=== PATIENT | female | born 1975 | race Hispanic/Latino ===

== ENCOUNTER 2017-09-17 18:45 | Emergency (ER) | payer OTHER ==
[2017-09-17 19:55] LABS: Absolute Lymphocytes (CBC) 1.6 K/uL (0.7-4.9); Absolute Monocytes 0.4 K/uL (0.1-1.3); Absolute Neutrophil 3.5 K/uL (1.8-8.0); Basophils % 1.1 % (0-1.3); Eosinophils % 3.5 % (0-4.4); Hematocrit 42.4 % (36.0-45.0); Lymphocytes % 28.1 % (15.3-44.8); MCH 29.8 pg (27.0-35.0); MCV 87.8 fL (80-100); MPV 9.1 fL (7.6-11.3); Monocytes % 6.5 % (3.3-12.3); RBC Red Blood Cell Count 4.83 M/uL (3.86-4.86)
[2017-09-17 20:01] LABS: Bicarbonate 25 mEq/L (21-31); Glucose Level 378 mg/dL (65-120); Potassium 3.7 mEq/L (3.6-5.0); Sodium Level 133 mEq/L (135-145)
[2017-09-17] MEDS ORDERED: NA CHLORIDE 0.9% 1,000 ML ONE (20:02)
[2017-09-17] MEDS ORDERED: CLINDAMYCIN 600MG/D5W 600 MG/50 ML BAG IV ONE (20:02)
[2017-09-17] MEDS ORDERED: DIPHENHYDRAMINE 50 MG/ML VIAL ONE (20:02)
[2017-09-17 20:04] LABS: ALT/SGPT 16 IU/L (10-60); AST/SGOT 18 IU/L (10-42); Albumin 3.6 g/dL (3.2-5.5); Alkaline Phosphatase 144 IU/L (42-121); BUN Blood Urea Nitrogen 13 mg/dL (6-20); Bilirubin Total 0.5 mg/dL (0.3-1.2); Protein, Total 6.7 g/dL (6.0-8.3)
--- NOTE | 2017-09-17 20:36 | EDPHYS ---
Physician Documentation [facility] Name: Bina Cifuentes Age: 42 yrs Sex: Female : 1975 Arrival Date: 09/17/2017 Time: 18:47 Bed 25 Private MD: ED Physician Jono Greer HPI: 09/17 20:04 This 42 yrs old Female presents to ER via Ambulatory with complaints of Facial ma2 Swelling. 20:04 The patient or guardian reports a bite, swelling. Context of injury: 1 day . Onset: The ma2 symptoms/episode began/occurred gradually, 1 day(s) ago. Associated signs and symptoms: Pertinent negatives: patient denies any alcohol consumption, headache, incontinence, nausea, neck pain, seizure, vomiting, generalized weakness, no change on voice or difficulty breathing or swallowing . Severity of symptoms: At their worst the symptoms were mild. 1 day of 1 single skin acne possible insect bite and mild cheek swelling, no swelling of mouth or airway . 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 - Social history:: Smoking status: Patient uses tobacco products, denies chronic smoking, but will smoke occasionally, Patient/guardian denies using alcohol, street drugs, The patient lives with family. - Family history:: not pertinent. ROS: 20:04 Constitutional: Negative for fever, chills, and weight loss, Cardiovascular: Negative ma2 for chest pain, palpitations, and edema, Respiratory: Negative for shortness of breath, cough, wheezing, and pleuritic chest pain, Abdomen/GI: Negative for abdominal pain, nausea, diarrhea, and constipation, Endocrine: Negative for neck swelling, polydipsia, polyuria, polyphagia, and marked weight changes. 20:04 ENT: Positive for mild face swellin g, Negative for drainage from ear(s), ear pain, hearing loss, pulling at ears, nasal discharge, rhinorrhea, sinus pain, sore throat, difficulty swallowing, difficulty handling secretions, hoarseness. 20:04 All other systems are negative. ma2 Exam: 20:04 Constitutional: This is a well developed, well nourished patient who is awake, alert, ma2 and in no acute distress. Eyes: Pupils equal round and reactive to light, extra-ocular motions intact. Lids and lashes normal. Conjunctiva and sclera are non-icteric and not injected. Cornea within normal limits. Periorbital areas with no swelling, redness, or edema. ENT: Nares patent. No nasal discharge, no septal abnormalities noted. Tympanic membranes are normal and external auditory canals are clear. Oropharynx with no redness, swelling, or masses, exudates, or evidence of obstruction, uvula midline. Mucous membranes moist. Chest/axilla: Normal chest wall appearance and motion. Nontender with no deformity. No lesions are appreciated. Cardiovascular: Regular rate and rhythm with a normal S1 and S2. No gallops, murmurs, or rubs. Normal PMI, no JVD. No pulse deficits. Respiratory: Lungs have equal breath sounds bilaterally, clear to auscultation and percussion. No rales, rhonchi or wheezes noted. No increased work of breathing, no retractions or nasal flaring. Neuro: Awake and alert, GCS 15, oriented to person, place, time, and situation. Cranial nerves II-XII grossly intact. Motor strength 5/5 in all extremities. Sensory grossly intact. Cerebellar exam normal. Normal gait. Psych: Awake, alert, with orientation to person, place and time. Behavior, mood, and affect are within normal limits. 20:04 Head/face: Noted is area of cellulitis 0.3x0.3 cm with 2 postule one on forehead and one on lower cheek, mild facial swelling, no swelling or oropharynx of tongue, voice not hoarse, no swelling of floor of mouth or neck . Vital Signs: 18:50 BP 141 / 106; Pulse 81; Resp 19; Temp 97.7(TE); Pulse Ox 100% on R/A; Weight 121.56 kg; la1 Height 5 ft. 5 in. (165.10 cm); 19:00 BP 134 / 87; Pulse 85; Resp 18; Pulse Ox 98% ; tl3 20:15 BP 132 / 83; Pulse 69; Resp 18; Pulse Ox 97% on R/A; tl3 21:24 BP 128 / 80; Pulse 84; Resp 16; Pulse Ox 98% on R/A; tl3 18:50 Body Mass Index 44.60 (121.56 kg, 165.10 cm) la1 MDM: 18:56 Patient medically screened. ma2 20:04 Differential diagnosis: facial cellulitis vs spider bite, vs allergic reaction, no ma2 airway compromise or Prabhu angina. Data reviewed: vital signs, nurses notes. Counseling: I had a detailed discussion with the patient and/or guardian regarding: the historical points, exam findings, and any diagnostic results supporting the discharge/admit diagnosis, the presence of at least one elevated blood pressure reading (>120/80) during this emergency department visit, the need for outpatient follow up. ED course: VS wnl,given IVF and clindamycine iv benadryl with imrovement of swelling, will send home with clindamycine benadryl, she will return to er for worsening of any of her symptoms . 20:34 Data reviewed: lab test result(s). Response to treatment: the patient's symptoms have ma2 markedly improved after treatment. ED course: she will f/u wiwth pcp for her elevated BS . 09/17 19:09 Order name: Blood Culture Adult (2) ma2 09/17 19:09 Order name: CBC with Diff; Complete Time: 20:33 ma2 09/17 19:09 Order name: CMP; Complete Time: 20:33 ma2 Administered Medications: 20:14 Drug: Clindamycin 600 mg Route: IVPB; Infused Over: 30 mins; Site: left antecubital; tl3 Delivery: Primary tubing; 21:22 Follow up: Response: No adverse reaction; IV Status: Completed infusion; IV Intake: tl3 100ml 20:15 Drug: NS 0.9% 1000 ml Route: IV; Rate: 1 bolus; Site: left antecubital; Delivery: tl3 Primary tubing; 21:15 Follow up: IV Status: Completed infusion; IV Intake: 1000ml tl3 20:15 Drug: Benadryl 25 mg Route: IVP; Infused Over: 3 mins; Site: left antecubital; tl3 21:23 Follow up: Response: No adverse reaction tl3 20:44 Drug: TORadol 30 mg Route: IVP; Infused Over: 3 mins; Site: left antecubital; tl3 21:22 Follow up: Response: No adverse reaction; Marked relief of symptoms tl3 Disposition: 05/12/18 20:35 Discharged to Home. Impression: Cellulitis of face. - Condition is Stable. - Discharge Instructions: Cellulitis, [id number]. - Prescriptions for Benadryl 25 mg Oral Capsule - take 1 capsule by ORAL route every 6 hours As needed; 30 tablet. Clindamycin HCl 300 mg Oral Capsule - take 1 capsule by ORAL route every 6 hours for 10 days; 40 capsule. Tylenol- Codeine #3 300-30 mg Oral Tablet - take 2 tablet by ORAL route every 6 hours As needed; 30 tablet. - Medication Reconciliation Form, Thank You Letter, Antibiotic Education, Prescription Opioid Use form. - Follow up: Private Physician; When: Tomorrow; Reason: Continuance of care. - Problem is new. - Symptoms have improved. - Notes: you may have diabetes, elevated blood sugar, follow up with your doctor for that. Signatures: Dispatcher [employer] EDMS Jakob Green RN RN la1 Jono Greer MD MD ma2 Myrna Walter RN RN tl3 Corrections: (The following items were deleted from the chart) 21:25 20:35 09/17/2017 20:35 Discharged to Home. Impression: Cellulitis of face. Condition is tl3 Stable. Forms are Medication Reconciliation Form, Thank You Letter, Antibiotic Education, Prescription Opioid Use. Follow up: Private Physician; When: Tomorrow; Reason: Continuance of care. Problem is new. Symptoms have improved. ma2
--- NOTE | 2017-09-17 20:36 | ER ---
Nurse's Notes [facility] Name: Bina Cifuentes Age: 42 yrs Sex: Female : 1975 Arrival Date: 09/17/2017 Time: 18:47 Bed 25 Private MD: Diagnosis: Cellulitis of face Presentation: 09/17 18:49 Presenting complaint: Patient states: I thought I had a pimple on my face but over the la1 course of 3 hours it started swelling in my face, airway patent, respirations even and unlabored. Transition of care: patient was not received from another setting of care. Onset of symptoms was September 17, 2017. Initial Sepsis Screen: Does the patient meet any 2 criteria? No. Patient's initial sepsis screen is negative. Does the patient have a suspected source of infection? No. Patient's initial sepsis screen is negative. Care prior to arrival: None. 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 - Social history:: Smoking status: Patient uses tobacco products, denies chronic smoking, but will smoke occasionally, Patient/guardian denies using alcohol, street drugs, The patient lives with family. - Family history:: not pertinent. Screenin:00 Abuse screen: Denies threats or abuse. Nutritional screening: No deficits noted. tl3 Tuberculosis screening: No symptoms or risk factors identified. Fall Risk None identified. Assessment: 19:00 General: Appears uncomfortable, well groomed, well developed, well nourished, Behavior tl3 is calm, cooperative, appropriate for age. Pain: Complains of pain in face. Neuro: Level of Consciousness is awake, alert, obeys commands, Oriented to person, place, time, situation, Appropriate for age. Cardiovascular: Heart tones S1 S2 present Patient's skin is warm and dry. Respiratory: Airway is patent Trachea midline Respiratory effort is even, unlabored, Respiratory pattern is regular, symmetrical, Breath sounds are clear bilaterally. GI: No signs and/or symptoms were reported involving the gastrointestinal system. : No signs and/or symptoms were reported regarding the genitourinary system. EENT: No signs and/or symptoms were reported regarding the EENT system. Derm: Skin temperature is warm swelling to left side of face Abscess located on forehead and chin. Musculoskeletal: No signs and/or symptoms reported regarding the musculoskeletal system. 19:00 Reassessment: pt reports that swelling started this am and has progressively gotten tl3 worse. 20:15 Reassessment: Patient appears in no apparent distress at this time. No changes from tl3 previously documented assessment. Patient and/or family updated on plan of care and expected duration. Pain level reassessed. Patient is alert, oriented x 3, equal unlabored respirations, skin warm/dry/pink. pt resting in bed, mom at bedside, no needs or complaints at this time. 20:45 Reassessment: awaiting finish of bolus to discharge. tl3 21:24 Reassessment: Patient appears in no apparent distress at this time. No changes from tl3 previously documented assessment. Patient and/or family updated on plan of care and expected duration. Pain level reassessed. Patient is alert, oriented x 3, equal unlabored respirations, skin warm/dry/pink. Vital Signs: 18:50 BP 141 / 106; Pulse 81; Resp 19; Temp 97.7(TE); Pulse Ox 100% on R/A; Weight 121.56 kg; la1 Height 5 ft. 5 in. (165.10 cm); 19:00 BP 134 / 87; Pulse 85; Resp 18; Pulse Ox 98% ; tl3 20:15 BP 132 / 83; Pulse 69; Resp 18; Pulse Ox 97% on R/A; tl3 21:24 BP 128 / 80; Pulse 84; Resp 16; Pulse Ox 98% on R/A; tl3 18:50 Body Mass Index 44.60 (121.56 kg, 165.10 cm) la1 ED Course: 18:47 Patient arrived in ED. mr 18:50 Triage completed. la1 18:50 Arm band placed on left wrist. la1 18:56 Jono Greer MD is Attending Physician. ma2 19:00 Patient has correct armband on for positive identification. Bed in low position. Call tl3 light in reach. Side rails up X 1. Adult w/ patient. Pulse ox on. NIBP on. 19:00 No provider procedures requiring assistance completed. Inserted saline lock: 20 gauge tl3 in left antecubital area, using aseptic technique. Blood collected. Missed attempt(s): 20 gauge in right in left forearm. upper arm. 19:47 Myrna Walter, RN is Primary Nurse. tl3 21:24 IV discontinued, intact, bleeding controlled, No redness/swelling at site. Pressure tl3 dressing applied. Administered Medications: 20:14 Drug: Clindamycin 600 mg Route: IVPB; Infused Over: 30 mins; Site: left antecubital; tl3 Delivery: Primary tubing; 21:22 Follow up: Response: No adverse reaction; IV Status: Completed infusion; IV Intake: tl3 100ml 20:15 Drug: NS 0.9% 1000 ml Route: IV; Rate: 1 bolus; Site: left antecubital; Delivery: tl3 Primary tubing; 21:15 Follow up: IV Status: Completed infusion; IV Intake: 1000ml tl3 20:15 Drug: Benadryl 25 mg Route: IVP; Infused Over: 3 mins; Site: left antecubital; tl3 21:23 Follow up: Response: No adverse reaction tl3 20:44 Drug: TORadol 30 mg Route: IVP; Infused Over: 3 mins; Site: left antecubital; tl3 21:22 Follow up: Response: No adverse reaction; Marked relief of symptoms tl3 Intake: 21:15 IV: 1000ml; Total: 1000ml. tl3 21:22 IV: 100ml; Total: 1100ml. tl3 Outcome: 20:35 Discharge ordered by . ma2 21:24 Discharged to home via wheelchair. tl3 21:24 Condition: stable 21:24 Discharge instructions given to patient, family, Instructed on discharge instructions, follow up and referral plans. medication usage, Demonstrated understanding of instructions, follow-up care, medications, Prescriptions given X 3. 21:25 Patient left the ED. tl3 Signatures: Rayne Angel Lee, RN RN madison1 Jono Greer MD MD ma2 Lowrey, Tammy, RN RN tl3
[2017-09-17] MEDS ORDERED: KETOROLAC 30 MG/ML INJ ONE (20:42)
[2017-09-17 21:30] VITALS: TEMP 97.7
[2017-09-17 21:34] VITALS: BP 128/80; O2SAT 98
== END 2017-09-17 21:25 | disposition home or self-care (01) ==
LOC: ER 18:45
DX: L03.211 Cellulitis of face (principal); Z72.0 Tobacco use
CPT/HCPCS: 36415; 80053; 85025; 87040; 96361; 96365; 96375; 99284; J7030

== ENCOUNTER 2018-04-28 10:26 | Day surgery (SDC) | payer SELFPAY ==
[2018-04-28] MEDS ORDERED: Ringers Lactate 0 ML IV ONE (10:49)
[2018-04-28] MEDS ORDERED: CEFAZOLIN 2GM (PREMIX IV) 2 GM/50 ML BAG ONE (10:50)
[2018-04-28] MEDS ORDERED: CEFAZOLIN 1GM (PREMIX IV) 1 GM/50 ML BAG ONE (10:51)
[2018-04-28] MEDS ORDERED: BUPIVACA 0.25%/EPI 0.0005% MDV 50 ML VIAL ONE (10:52)
[2018-04-28] MEDS ORDERED: NA CHLORIDE 0.9% 1,000 ML ONE ×2 (10:53→12:38)
[2018-04-28] MEDS ORDERED: PROPOFOL 200 MG/20 ML VIAL IV ONE (11:09)
[2018-04-28] MEDS ORDERED: LIDOCAINE 2% MPF 5 ML VIAL ONE (11:10)
[2018-04-28] MEDS ORDERED: ONDANSETRON 4 MG/2 ML VIAL ONE (11:10)
[2018-04-28] MEDS ORDERED: MIDAZOLAM HCL 2 MG/2 ML INJ ONE ×2 (11:10→12:35)
[2018-04-28] MEDS ORDERED: FENTANYL CITR 100 MCG/2 ML ONE (11:10)
--- NOTE | 2018-04-28 11:35 | P.OP ---
Preoperative diagnosis: LEFT Abdominal Subcutaneous Abscess Postoperative diagnosis: LEFT Abdominal Subcutaneous Abscess Primary procedure: Excision / Debridement of LEFT Abdominal Subcutaneous Abscess Anesthesia: GETA Estimated blood loss: <5cc Specimen: Cultures sent Findings: Carbuncle with abscess ~5cmx 0lyt6wk down into subQ fat Complications: None Transferred to: Recovery Room Condition: Good
[2018-04-28] MEDS ORDERED: PROMETHAZINE 25 MG/ML VIAL ONE (12:13)
[2018-04-28] MEDS: MORPHINE 4 MG/ML SYR ONE ×2 (12:15→12:25)
[2018-04-28] MEDS ORDERED: HYDROCODONE/APAP 5/325 MG TAB ONE (14:20)
[2018-04-28 14:58] VITALS: BP 124/66; TEMP 98; O2SAT 95
--- NOTE | 2018-04-28 22:58 | OP ---
Date of Procedure: 04/28/2018 Surgeon: Homer Andrade MD, Preoperative Diagnosis: Left abdominal subcutaneous abscess. Postoperative Diagnosis: Left abdominal subcutaneous abscess. Procedure Performed: An excision/debridement of left abdominal subcutaneous abscess. Anesthesia: General endotracheal. Estimated Blood Loss: Less 5 cc. Specimen: Cultures sent. Findings: Carbuncle with abscess 5 cm x 4 cm x 4 cm down into the subcutaneous fascia. Complications: None. Transferred to recovery room in good condition. Procedure In Detail: Informed consent was obtained. The patient was brought to the operating room, appropriately prepped and draped in the usual sterile fashion. After adequate anesthesia was achieve d, a curvilinear incision was made around the area of carbuncle on the left abdominal wall. The smiley pse of skin was taken at approximately 5 cm at the surface by 4 cm and was opened up, immediately enc ountered with an abscess with fat necrosis. This was cultured for both aerobic and anaerobic speciat ion and small specimen was sent for culture as well. The area was completely unroofed and marsupiali zed at this time. All necrotic tissue was then curetted out until completely clear and trimmed off w ith tenotomy scissors down to good bleeding subcutaneous fat. The abscess cavity was complex and ult imately went into the subcutaneous fat. After this was completely removed, the area was copiously ir rigated and hemostasis was achieved with electrocautery. The area was copiously irrigated one last t gumaro and then dried. No additional hemostatic maneuvers were required. The wound was then packed wit h Betadine-soaked gauze and Kerlix and a sterile dressing was placed over top. The patient tolerated the procedure well without evidence of complication and transferred back in good condition. All cou nts were correct at the end of the case. BRADEN/DUNIA Voice ID: [id number] Report ID: [id number]
== END 2018-04-28 15:40 | disposition home or self-care (01) ==
LOC: OR 10:26
PROVIDERS: ATTEND Surgery
PROC: 0JB80ZZ Excision of Abdomen Subcutaneous Tissue and Fascia, Open Approach (ICD-10-PCS; principal; 2018-04-28 11:30)
DX: L02.211 Cutaneous abscess of abdominal wall (principal); E66.9 Obesity, unspecified; F17.200 Nicotine dependence, unspecified, uncomplicated
CPT/HCPCS: 82962; 87070; 87075; 87077; 87186; 87205; 88304; 88305; J0690; J2250; J2405; J2550; J2704; J3010; J7030

== ENCOUNTER 2018-12-07 13:15 | Emergency (ER) | payer SELFPAY ==
[2018-12-07] MEDS ORDERED: BUPIVACAINE 0.5% PF 10 ML VIAL ONE (15:39)
[2018-12-07] MEDS ORDERED: SMZ./TMP. 800/160 MG TABLET ONE (15:40)
[2018-12-07] MEDS ORDERED: LIDOCAINE 1% MPF 5 ML VIAL ONE (15:40)
--- NOTE | 2018-12-07 16:32 | ER ---
Nurse's Notes [facility] Name: Bina Cifuentes Age: 43 yrs Sex: Female : 1975 Arrival Date: 12/07/2018 Time: 13:16 Bed 30 Private MD: Diagnosis: Cellulitis of right upper limb-middle finger Presentation: 12/07 13:34 Presenting complaint: Patient states: pain and redness to right middle finger that aa5 began yesterday. Pt denies known injury. Sore noted to right middle finger, pt states "it's been there for about a week". Transition of care: patient was not received from another setting of care. Onset of symptoms was December 06, 2018. Risk Assessment: Do you want to hurt yourself or someone else? Patient reports no desire to harm self or others. Initial Sepsis Screen: Does the patient meet any 2 criteria? No. Patient's initial sepsis screen is negative. Does the patient have a suspected source of infection? No. Patient's initial sepsis screen is negative. Care prior to arrival: None. 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 - Social history:: Smoking status: Patient uses tobacco products, denies chronic smoking, but will smoke occasionally. - Ebola Screening: : No symptoms or risks identified at this time. Screenin:56 Abuse screen: Denies threats or abuse. Denies injuries from another. Nutritional mg2 screening: No deficits noted. Tuberculosis screening: No symptoms or risk factors identified. Fall Risk None identified. Assessment: 15:53 General: Appears in no apparent distress. comfortable, Behavior is calm, cooperative. mg2 Pain: Complains of pain in right middle finger Pain does not radiate. Pain currently is 8 out of 10 on a pain scale. Quality of pain is described as aching, Aggravated by touch. Neuro: Level of Consciousness is awake, alert, obeys commands, Oriented to person, place, time, situation. Cardiovascular: Capillary refill < 3 seconds Patient's skin is warm and dry. Respiratory: Airway is patent Respiratory effort is even, unlabored, Respiratory pattern is regular, symmetrical. GI: No signs and/or symptoms were reported involving the gastrointestinal system. : No signs and/or symptoms were reported regarding the genitourinary system. EENT: No signs and/or symptoms were reported regarding the EENT system. Derm: Abscess located on right middle finger. Musculoskeletal: Circulation, motion, and sensation intact. Capillary refill < 3 seconds, Swelling present in right middle finger. Vital Signs: 13:36 BP 139 / 88; Pulse 99; Resp 18 S; Temp 98.0(TE); Pulse Ox 96% on R/A; Weight 111.58 kg aa5 (M); Pain 8/10; 16:23 BP 143 / 87; Pulse 72; Resp 18; Pulse Ox 96% on R/A; mg2 ED Course: 13:16 Patient arrived in ED. as 13:34 Arm band placed on. aa5 13:35 Triage completed. aa5 15:11 Rad[facility] Kilgore [facility]C [facility]. kb 15:11 Deacon Gomez MD is Attending Physician. kb 15:44 Adrian Barnett RN is Primary Nurse. mg2 15:56 Patient did not have IV access during this emergency room visit. mg2 16:13 Patient has correct armband on for positive identification. Pulse ox on. NIBP on. Door mg2 closed. Warm blanket given. 16:58 No provider procedures requiring assistance completed. mg2 Administered Medications: 15:44 Drug: Bactrim (160 mg-800 mg (DS) 1 tablet Route: PO; mg2 16:22 Follow up: Response: No adverse reaction mg2 16:15 Drug: Lidocaine (1 %) 1 vials {Note: by the provider.} Volume: 5 ml; Route: mg2 Infiltration; 16:15 Drug: Marcaine (0.5 %) 1 vials {Note: by the provider.} Volume: 10 ml; Route: mg2 Infiltration; Outcome: 16:32 Discharge ordered by . kb 16:58 Discharged to home ambulatory, with family. mg2 16:58 Condition: stable 16:58 Discharge instructions given to patient, family, Instructed on discharge instructions, follow up and referral plans. medication usage, Demonstrated understanding of instructions, follow-up care, medications. 16:59 Patient left the ED. mg2 Signatures: Radha Kilgore, ZAC ALICEA-Manju Chatterjee Audri, RN RN aa5 Adrian Barnett RN RN mg2 Corrections: (The following items were deleted from the chart) 13:36 13:36 Social history: Smoking status: Patient/guardian denies using tobacco, vonnie aaAbdi 16:32 16:23 Pulse 72bpm; Resp 18bpm; Pulse Ox 96% RA; mg2 mg2
--- NOTE | 2018-12-07 16:33 | EDPHYS ---
Physician Documentation [facility] Name: Bina Cifuentes Age: 43 yrs Sex: Female : 1975 Arrival Date: 12/07/2018 Time: 13:16 Bed 30 Private MD: ED Physician Decaon Gomez HPI: 12/08 02:09 This 43 yrs old Female presents to ER via Ambulatory with complaints of Finger kb Injury. 02:09 the patient presents with a swollen area of the right middle finger. Description: kb erythematous, swollen, warm. Onset: The symptoms/episode began/occurred yesterday. Possible cause(s): unknown. Associated signs and symptoms: Pertinent positives: erythema, swelling, Pertinent negatives: discharge, drainage, foreign body sensation, fever, headache, nausea, shortness of breath, vomiting. Modifying factors: the symptoms are alleviated by nothing, the symptoms are aggravated by nothing. Severity of symptoms: At their worst the symptoms were moderate, in the emergency department the symptoms are unchanged. The patient has not experienced similar symptoms in the past. The patient has not recently seen a physician. Pt reports right middle finger swelling, redness and pain that started yesterday. 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 - Social history:: Smoking status: Patient uses tobacco products, denies chronic smoking, but will smoke occasionally. - Ebola Screening: : No symptoms or risks identified at this time. ROS: 12/08 01:32 Constitutional: Negative for fever, chills, and weight loss, Neck: Negative for injury, kb pain, and swelling, Cardiovascular: Negative for chest pain, palpitations, and edema, Respiratory: Negative for shortness of breath, cough, wheezing, and pleuritic chest pain, Abdomen/GI: Negative for abdominal pain, nausea, vomiting, diarrhea, and constipation, Back: Negative for injury and pain, : Negative for injury, bleeding, discharge, and swelling, Neuro: Negative for headache, weakness, numbness, tingling, and seizure. MS/extremity: Positive for erythema, pain, swelling, tenderness, of the right middle finger. Exam: 01:33 Constitutional: This is a well developed, well nourished patient who is awake, alert, kb and in no acute distress. Head/Face: Normocephalic, atraumatic. ENT: Nares patent. No nasal discharge, no septal abnormalities noted. Tympanic membranes are normal and external auditory canals are clear. Oropharynx with no redness, swelling, or masses, exudates, or evidence of obstruction, uvula midline. Mucous membranes moist. Neck: Trachea midline, no thyromegaly or masses palpated, and no cervical lymphadenopathy. Supple, full range of motion without nuchal rigidity, or vertebral point tenderness. No Meningismus. Chest/axilla: Normal chest wall appearance and motion. Nontender with no deformity. No lesions are appreciated. Cardiovascular: Regular rate and rhythm with a normal S1 and S2. No gallops, murmurs, or rubs. Normal PMI, no JVD. No pulse deficits. Respiratory: Lungs have equal breath sounds bilaterally, clear to auscultation and percussion. No rales, rhonchi or wheezes noted. No increased work of breathing, no retractions or nasal flaring. Abdomen/GI: Soft, non-tender, with normal bowel sounds. No distension or tympany. No guarding or rebound. No evidence of tenderness throughout. MS/ Extremity: Pulses equal, no cyanosis. Neurovascular intact. Full, normal range of motion. Neuro: Awake and alert, GCS 15, oriented to person, place, time, and situation. Cranial nerves II-XII grossly intact. Motor strength 5/5 in all extremities. Sensory grossly intact. Cerebellar exam normal. Normal gait. 01:33 Skin: cellulitis, that is moderate, on the right middle finger. Vital Signs: 12/07 13:36 BP 139 / 88; Pulse 99; Resp 18 S; Temp 98.0(TE); Pulse Ox 96% on R/A; Weight 111.58 kg aa5 (M); Pain 8/10; 16:23 BP 143 / 87; Pulse 72; Resp 18; Pulse Ox 96% on R/A; mg2 Procedures: 12/08 01:34 Nerve block: (digital) of right middle finger Medication: Lidocaine 1% without kb epinephrine Marcaine 0.5%, Amount: 4 mls were injected, Effect: the patient has resolution of the pain, Set up for procedure. Performed by Radha FRANK Patient tolerated well. MDM: 12/07 15:12 Patient medically screened. kb 12/08 01:33 Data reviewed: vital signs, nurses notes. Data interpreted: Pulse oximetry: on room air kb is 96 %. Interpretation: normal. Counseling: I had a detailed discussion with the patient and/or guardian regarding: the historical points, exam findings, and any diagnostic results supporting the discharge/admit diagnosis, the need for outpatient follow up, a family practitioner, to return to the emergency department if symptoms worsen or persist or if there are any questions or concerns that arise at home. Administered Medications: 12/07 15:44 Drug: Bactrim (160 mg-800 mg (DS) 1 tablet Route: PO; mg2 16:22 Follow up: Response: No adverse reaction mg2 16:15 Drug: Lidocaine (1 %) 1 vials {Note: by the provider.} Volume: 5 ml; Route: mg2 Infiltration; 16:15 Drug: Marcaine (0.5 %) 1 vials {Note: by the provider.} Volume: 10 ml; Route: mg2 Infiltration; Disposition: 12/07/18 16:32 Discharged to Home. Impression: Cellulitis of right upper limb - middle finger. - Condition is Stable. - Discharge Instructions: Cellulitis, Adult, [id number], Felon. - Prescriptions for Bactrim DS 800- 160 mg Oral Tablet - take 1 tablet by ORAL route every 12 hours for 10 days; 20 tablet. Diclofenac Sodium 75 mg Oral Tablet, Delayed Release (E.C.) - take 1 tablet by ORAL route 2 times per day As needed; 30 tablet. - Work release form, Medication Reconciliation Form, Thank You Letter, Antibiotic Education, Prescription Opioid Use form. - Follow up: Private Physician; When: 2 - 3 days; Reason: Recheck today's complaints, Continuance of care, Re-evaluation by your physician. Follow up: Emergency Department; When: As needed; Reason: Worsening of condition. Addendum: 12/11/2018 08:40 Co-signature as Attending Physician, Deacon Gomez MD I agree with the assessment and k dr plan of care. Signatures: Radha Kilgore, VENEREAL DISEASE CONTROL HEAD-C VENEREAL DISEASE CONTROL HEAD-Ckb Deacon Gmoez MD MD kdr Adilene Gaines RN RN aa5 Adrian Barnett, RN RN mg2 Corrections: (The following items were deleted from the chart) 12/07 13:36 13:36 Social history: Smoking status: Patient/guardian denies using tobacco, aa5 aa5 16:59 16:32 12/07/2018 16:32 Discharged to Home. Impression: Cellulitis of right upper limb - mg2 middle finger. Condition is Stable. Forms are Medication Reconciliation Form, Thank You Letter, Antibiotic Education, Prescription Opioid Use. Follow up: Private Physician; When: 2 - 3 days; Reason: Recheck today's complaints, Continuance of care, Re-evaluation by your physician. Follow up: Emergency Department; When: As needed; Reason: Worsening of condition. kb 12/08 01:33 01:32 MS/extremity: Positive for erythema, pain, swelling, tenderness, kb kb
[2018-12-07 17:25] VITALS: TEMP 98; O2SAT 96
[2018-12-07 17:26] VITALS: BP 143/87
== END 2018-12-07 16:59 | disposition home or self-care (01) ==
LOC: ER 13:15
DX: L03.011 Cellulitis of right finger (principal); Z72.0 Tobacco use
CPT/HCPCS: 64450; 99283

== ENCOUNTER 2019-07-30 22:00 | Emergency (ER) | payer SELFPAY ==
[2019-07-30] MEDS ORDERED: LIDOCAINE 1% MPF 5 ML VIAL ONE (22:42)
[2019-07-30] MEDS ORDERED: HYDROCODONE/APAP 10/325 TAB ONE (22:42)
[2019-07-30] MEDS ORDERED: TETANUS & DIPHTHERIA TOX,ADULT 0.5 ML VIAL ONE (22:43)
--- NOTE | 2019-07-31 00:31 | ER ---
Nurse's Notes [facility] Name: Bina Cifuentes Age: 44 yrs Sex: Female : 1975 Arrival Date: 07/30/2019 Time: 22:04 Bed 2 Private MD: Diagnosis: Cellulitis of left finger Presentation: 07/29 22:22 Chief complaint: Patient states: pain to L second digit for the past 36 hours. started ch yesterday morning, pain is getting worse and worse, swelling is getting worse and worse. Coronavirus screen: Patient denies fever greater than 100.4F, cough, shortness of breath, or difficulty breathing. Proceed with normal triage process. Ebola Screen: Patient negative for fever greater than or equal to 101.5 degrees Fahrenheit, and additional compatible Ebola Virus Disease symptoms Patient denies exposure to infectious person. Patient denies travel to an Ebola-affected area in the 21 days before illness onset. No symptoms or risks identified at this time. Initial Sepsis Screen: Does the patient meet any 2 criteria? No. Patient's initial sepsis screen is negative. Does the patient have a suspected source of infection? No. Patient's initial sepsis screen is negative. Risk Assessment: Do you want to hurt yourself or someone else? Patient reports no desire to harm self or others. 22:22 Method Of Arrival: Ambulatory 22:22 Acuity: DUARTE 3 07/30 02:38 Onset of symptoms was July 29, 2019 at 08:00. Triage Assessment: 07/29 22:25 General: Appears in no apparent distress. comfortable, Behavior is calm, cooperative, appropriate for age. Pain: Complains of pain in left index finger, dorsal aspect of distal phalanx of left index finger, palmar aspect of distal phalanx of left index finger and left index fingernail Pain currently is 8 out of 10 on a pain scale. Neuro: No deficits noted. Musculoskeletal: Capillary refill < 3 seconds, in bilateral fingers. Range of motion: limited in DIP of left index finger and PIP of left index finger Swelling present in left index finger, dorsal aspect of distal phalanx of left index finger and palmar aspect of distal phalanx of left index finger. Injury Description: none- pt does bite her nails. 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 - Social history:: Smoking status: Patient reports the use of cigarette tobacco products, denies chronic smoking, but will smoke occasionally, Patient uses alcohol, occasionally. Patient/guardian denies using street drugs. Screenin:29 Abuse screen: Denies threats or abuse. Denies injuries from another. Nutritional ch screening: No deficits noted. Tuberculosis screening: No symptoms or risk factors identified. Fall Risk None identified. Assessment: 22:29 General: Appears in no apparent distress. comfortable, Behavior is calm, cooperative, ch appropriate for age. Pain: Complains of pain in palmar aspect of distal phalanx of left index finger and dorsal aspect of distal phalanx of left index finger Pain currently is 8 out of 10 on a pain scale. Neuro: No deficits noted. Respiratory: Airway is patent Respiratory effort is even, unlabored. Derm: Skin is pink, pt has swelling and some bruising to her finger tip, skin is reddened and slightly mildly purplish on tip. Musculoskeletal: No signs and/or symptoms reported regarding the musculoskeletal system. 23:30 Reassessment: Patient appears in no apparent distress at this time. Patient and/or ch family updated on plan of care and expected duration. Pain level reassessed. Patient is alert, oriented x 3, equal unlabored respirations, skin warm/dry/pink. 07/30 00:20 Reassessment: Patient appears in no apparent distress at this time. Patient and/or ch family updated on plan of care and expected duration. Pain level reassessed. Patient is alert, oriented x 3, equal unlabored respirations, skin warm/dry/pink. Patient states feeling better. Patient states symptoms have improved. 00:45 Reassessment: AWAITING CHRISTOPHER TO ADD MUPROCIN SCRIPT. Vital Signs: 07/29 22:22 BP 155 / 102; Pulse 88; Resp 14; Temp 99(O); Pulse Ox 99% on R/A; Weight 104.33 kg; ch Height 5 ft. 5 in. (165.10 cm); Pain 8/10; 07/30 00:20 BP 130 / 88; Pulse 71; Resp 14; Temp 98.2; Pulse Ox 99% on R/A; Pain 3/10; ch 07/29 22:22 Body Mass Index 38.27 (104.33 kg, 165.10 cm) ED Course: 07/29 22:04 Patient arrived in ED. cf2 22:16 Christopher Walters, SUSTAINABLE PRODUCTS MARKETING MANAGER is PHCP. pm1 22:17 Brooks Hussein MD is Attending Physician. pm1 22:22 Veronica Boykin, BING is Primary Nurse. 22:24 Triage completed. 22:25 Arm band placed on left wrist. Patient placed in an exam room, on a stretcher, on pulse oximetry. 22:29 Patient has correct armband on for positive identification. Bed in low position. Call light in reach. Side rails up X 1. Pulse ox on. NIBP on. Warm blanket given. 07/30 00:00 Assist provider with I \\T\\ D: of an abscess on left fingertip Set up I\\T\\D tray. Performed ch by Christopher Walters SUSTAINABLE PRODUCTS MARKETING MANAGER Dressing with Neosporin and tape Patient tolerated pt tolerated fair. pt is very sensitive to all stimuli. pt cries out when repositioning herself on the bed. pt reports extreem pain from the blood pressure cuff on her R arm, from the tdap shot in her L deltoid, from any rom check on hand and elbow. pt reports pain in her back from our beds, requires multiple changes to position of bed to achieve comfort. Patient did not have IV access during this emergency room visit. Administered Medications: 07/29 22:45 Drug: Tetanus-Diphtheria Toxoid Adult 0.5 ml {Digital Pre Press Operator: [employer]. Exp: 05/24/2021. Lot #: [id number]. } Route: IM; Site: left deltoid; 23:15 Follow up: Response: No adverse reaction 22:45 Drug: [place] 10 mg-325 mg 1 tabs Route: PO; 23:16 Follow up: Response: No adverse reaction 07/30 00:30 Drug: Lidocaine (1 %) 5 ml Volume: 5 ml; Route: Infiltration; 01:06 Drug: Augmentin 875 mg Route: PO; 01:06 Follow up: Response: No adverse reaction Outcome: 00:30 Discharge ordered by . pm1 01:04 Discharged to home ambulatory, with family. 01:04 Condition: improved 01:04 Discharge instructions given to patient, Instructed on discharge instructions, follow up and referral plans. medication usage, Demonstrated understanding of instructions, follow-up care, medications, wound care, Prescriptions given X 3. 01:07 Patient left the ED. Signatures: Veronica Boykin, RN RN Christopher Couch, SEMAJ SUSTAINABLE PRODUCTS MARKETING MANAGER pm1 Tito Warren 2
--- NOTE | 2019-07-31 00:33 | EDPHYS ---
Physician Documentation [facility] Name: Bina Cifuentes Age: 44 yrs Sex: Female : 1975 Arrival Date: 07/30/2019 Time: 22:04 Bed 2 Private MD: ED Physician Brooks Hussein HPI: 07/29 22:49 This 44 yrs old Female presents to ER via Ambulatory with complaints of Finger pm1 Injury, Arm Pain. 22:49 The patient or guardian reports pain, swelling. The complaints affect the palmar aspect pm1 of distal phalanx of left index finger. 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 Onset: The symptoms/episode began/occurred yesterday. Modifying factors: The symptoms are alleviated by nothing, the symptoms are aggravated by touching. Associated signs and symptoms: Pertinent negatives: cyanosis distally, decreased sensation distally, numbness distally, tingling distally. Severity of symptoms: in the emergency department the symptoms are actually worse. The patient has not experienced similar symptoms in the past. 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 - Social history:: Smoking status: Patient reports the use of cigarette tobacco products, denies chronic smoking, but will smoke occasionally, Patient uses alcohol, occasionally. Patient/guardian denies using street drugs. ROS: 22:49 Constitutional: Negative for fever, chills, and weight loss, Cardiovascular: Negative pm1 for chest pain, palpitations, and edema, Respiratory: Negative for shortness of breath, cough, wheezing, and pleuritic chest pain, Back: Negative for injury and pain. 22:49 Skin: Negative for injury, rash, and discoloration. 22:49 MS/extremity: Positive for pain, swelling, of the palmar aspect of distal phalanx of left index finger. 22:49 All other systems are negative. Exam: 22:49 Constitutional: This is a well developed, well nourished patient who is awake, alert, pm1 and in no acute distress. Head/Face: Normocephalic, atraumatic. Chest/axilla: Normal chest wall appearance and motion. Nontender with no deformity. No lesions are appreciated. Cardiovascular: Regular rate and rhythm with a normal S1 and S2. No gallops, murmurs, or rubs. Normal PMI, no JVD. No pulse deficits. Respiratory: Lungs have equal breath sounds bilaterally, clear to auscultation and percussion. No rales, rhonchi or wheezes noted. No increased work of breathing, no retractions or nasal flaring. Abdomen/GI: Soft, non-tender, with normal bowel sounds. No distension or tympany. No guarding or rebound. No evidence of tenderness throughout. Back: No spinal tenderness. No costovertebral tenderness. Full range of motion. Skin: Warm, dry with normal turgor. Normal color with no rashes, no lesions, and no evidence of cellulitis. 22:49 Musculoskeletal/extremity: Extremities: grossly normal except: noted in the palmar aspect of distal phalanx of left index finger: swelling, tenderness. Vital Signs: 22:22 BP 155 / 102; Pulse 88; Resp 14; Temp 99(O); Pulse Ox 99% on R/A; Weight 104.33 kg; Height 5 ft. 5 in. (165.10 cm); Pain 8/10; 07/30 00:20 BP 130 / 88; Pulse 71; Resp 14; Temp 98.2; Pulse Ox 99% on R/A; Pain 3/10; ch 07/29 22:22 Body Mass Index 38.27 (104.33 kg, 165.10 cm) [facility]: 07/29 22:31 Patient medically screened. pm1 07/30 00:28 Data reviewed: vital signs. Data interpreted: Pulse oximetry: on room air is 99 %. pm1 Interpretation: normal. Counseling: I had a detailed discussion with the patient and/or guardian regarding: the historical points, exam findings, and any diagnostic results supporting the discharge/admit diagnosis, the need for outpatient follow up, for definitive care, a hand specialist, to return to the emergency department if symptoms worsen or persist or if there are any questions or concerns that arise at home. 07/29 22:31 Order name: Incision \\T\\ Drainage Setup; Complete Time: 22:34 pm1 Administered Medications: 07/29 22:45 Drug: Tetanus-Diphtheria Toxoid Adult 0.5 ml {Sizer Machine: [employer]. Exp: 05/24/2021. Lot #: [id number]. } Route: IM; Site: left deltoid; 23:15 Follow up: Response: No adverse reaction 22:45 Drug: [place] 10 mg-325 mg 1 tabs Route: PO; 23:16 Follow up: Response: No adverse reaction 07/30 00:30 Drug: Lidocaine (1 %) 5 ml Volume: 5 ml; Route: Infiltration; 01:06 Drug: Augmentin 875 mg Route: PO; 01:06 Follow up: Response: No adverse reaction Disposition: :27 Co-signature as Attending Physician, Brooks Hussein MD. pkhugh Disposition: 07/31/19 00:30 Discharged to Home. Impression: Cellulitis of left finger. - Condition is Stable. - Discharge Instructions: Fingertip Infection. - Prescriptions for Augmentin 875- 125 mg Oral Tablet - take 1 tablet by ORAL route every 12 hours for 10 days; 20 tablet. Tramadol 50 mg Oral Tablet - take 1 tablet by ORAL route every 8 hours as needed; 12 tablet. Bactroban 2 % Topical Ointment - Apply to affected area 1 application by TOPICAL route every 12 hours; 30 gram. - Work release form, Medication Reconciliation Form, Thank You Letter, Antibiotic Education, Prescription Opioid Use form. - Follow up: Emergency Department; When: As needed; Reason: Worsening of condition. Follow up: Private Physician; When: 2 - 3 days; Reason: Recheck today's complaints, Continuance of care, Re-evaluation by your physician. - Problem is new. - Symptoms have improved. Signatures: Veronica Boykin, RN BING Hussein, MD TED Guy pkl Christopher Walters, SEMAJ CANE SPLICER pm1 Corrections: (The following items were deleted from the chart) 01:07 00:30 07/31/2019 00:30 Discharged to Home. Impression: Cellulitis of left finger. ch Condition is Stable. Forms are Medication Reconciliation Form, Thank You Letter, Antibiotic Education, Prescription Opioid Use. Follow up: Emergency Department; When: As needed; Reason: Worsening of condition. Follow up: Private Physician; When: 2 - 3 days; Reason: Recheck today's complaints, Continuance of care, Re-evaluation by your physician. Problem is new. Symptoms have improved. pm1
[2019-07-31] MEDS ORDERED: AMOX/K CLAV 875 MG TAB ONE (01:07)
[2019-07-31 01:45] VITALS: BP 155/102; TEMP 99; O2SAT 99
== END 2019-07-31 01:07 | disposition home or self-care (01) ==
LOC: ER 22:00
DX: L03.012 Cellulitis of left finger (principal); E11.9 Type 2 diabetes mellitus without complications; Z23 Encounter for immunization; Z72.0 Tobacco use
CPT/HCPCS: 90471; 90714; 99284